=== PATIENT | female | born 2000 | race Caucasian/White ===

== ENCOUNTER 2021-09-15 18:39 | Emergency (ER) | payer SELFPAY ==
[~2021-09-15] VITALS: Ht 165.1 cm; Wt 90.4 kg
[2021-09-15 18:40] VITALS: BP 149/100
--- NOTE | 2021-09-15 19:30 | PHYS DOC ---
Past Medical History Past Surgical History: No Surgical History General Adult EDM: Chief Complaint: UPPER EXTREMITY PAIN HPI: HPI: Patient is a 21 year old female presents to the emergency department complaining of right wrist and forearm pain that started this past Thursday while at work. Patient states she moves heavy boxes repetitively, explained to her boxes that she was hurting, states that her bosses told her that she needed to work anyways. Patient states she took a tablet of 200 mg Motrin Thursday after work without relief of pain, states she put icy hot on her forearm without relief of pain, states Thursday she did not try any [id number] medications or nonpharmacological pain relief methods for her discomfort. Patient states she is due to the go back to work on Thursday, is still continuing to have pain and discomfort of her right forearm and wrist. Patient reports her last menstrual cycle was 5 weeks ago with normal duration of flow. Reports a 6-7 out of 10 pain. Increased pain with movement of the wrist. States nothing seems to make her pain go away. Patient denies other physical complaints or physical concerns. Review of Systems: Review of Systems: 14 body systems of review of systems have been reviewed. See HPI for pertinent positives and negative responses, otherwise all other systems are negative, nonpertinent or noncontributory. Constitutional: Negative except as outlined in HPI above. Skin: Negative except as outlined in HPI above. Eyes: Negative except as outlined in HPI above. HENT: Negative except as outlined in HPI above. Respiratory: Negative except as outlined in HPI above. Cardiovascular: Negative except as outlined in HPI above. GI: Negative except as outlined in HPI above. : Negative except as outlined in HPI above. Musculoskeletal: Negative except as outlined in HPI above. Integument: Negative except as outlined in HPI above. Neurologic: Negative except as outlined in HPI above. Endocrine: Negative except as outlined in HPI above. Lymphatic: Negative except as outlined in HPI above. Psychiatric: Negative except as outlined in HPI above. Heart Score: C/O Chest Pain: No Risk Factors: Risk Factors: DM, Current or recent (<one month) smoker, HTN, HLP, family history of CAD, obesity. Risk Scores: Score 0 - 3: 2.5% MACE over next 6 weeks - Discharge Home Score 4 - 6: 20.3% MACE over next 6 weeks - Admit for Clinical Observation Score 7 - 10: 72.7% MACE over next 6 weeks - Early Invasive Strategies Allergies: Allergies: Allergies Coded Allergies Type Severity Reaction Last Updated Verified No Known Drug Allergies 09/15/21 No Physical Exam: PE: Constitutional: Well developed, well nourished, no acute distress, non-toxic appearance. 21-year-old female in no apparent distress. HENT: Normocephalic, atraumatic. Eyes: Conjunctiva normal, no discharge. Neck: Normal range of motion, no stridor. Cardiovascular: No cyanosis appreciated, distal cap refill less than 2 seconds. Lungs & Thorax: Patient is in no respiratory distress, no audible adventitious lung sounds appreciated. Abdomen: Nontender, no abnormalities noted. Skin: Warm, dry, no erythema, no rash. Back: No tenderness, no deformities. Extremities: No tenderness, no cyanosis, no clubbing, ROM intact, no edema. Except for right upper extremity, positive Phalen's and Tinel's test. Distal cap refill less than 2 seconds equal bilateral upper extremities, 2+ radial pulses equal bilateral upper extremities. There is no deformities, no skin discoloration, no swelling appreciated. No lymphangitis appreciated. Skin is intact. Neurologic: Alert and oriented X 3, normal motor function, normal sensory function, no focal deficits noted. Psychologic: Affect normal, judgement normal, mood normal. Current Patient Data: Labs: Laboratory Tests Test 09/15/21 19:03 POC Urine HCG, Qualitative Hcg negative (Negative) Vital Signs: Vital Signs Date Time Temp Pulse Resp B/P (MAP) Pulse Ox O2 Delivery O2 Flow Rate FiO2 09/15/21 18:40 98.5 87 18 149/100 (116) 98 Room Air 98.5 EKG: EKG: [] Radiology/Procedures: Radiology/Procedures: [] Course & Med Decision Making: Course & Med Decision Making Pertinent Labs and Imaging studies reviewed. (See chart for details) 21-year-old female, vital signs reviewed, presents emergency department concerning right wrist pain after lifting heavy boxes at work all day. Physical examination concerning for carpal tunnel of the right wrist. Discussed with patient concerns of carpal tunnel, discussed with patient wearing splint, follow-up with primary care for reevaluation soon, NSAID therapy, will prescribe Motrin for pain or discomfort, will give Decadron injection in ED prior to discharge. Discussed return to ER precautions and concerns, patient gave verbal understanding of and is amenable to ED discharge planning. Discussed with the patient all findings and diagnostic testing as well as the need to follow-up with their primary care provider for further evaluation and treatment or return to the ED if any new or worsening symptoms. Strict return precautions were also discussed at length, the patient voiced understanding and agreement with the discharge planning. The patient was nontoxic in appearance, in no apparent distress, and hemodynamically stable at the time of disposition. Dragon Disclaimer: Dragon Disclaimer: This electronic medical record was generated, in whole or in part, using a voice recognition dictation system. Departure Departure Impression: Primary Impression: Carpal tunnel syndrome of right wrist Disposition: HOME / SELF CARE / HOMELESS Condition: GOOD Patient Instructions: Carpal Tunnel Syndrome Additional Instructions: You were seen today in the emergency department for right wrist pain. Your physical examination is concerning for carpal tunnel syndrome. You were given a steroid injection in the ED today prior to discharge. You are also given a intramuscular injection of Toradol. As we discussed I am starting you on ibuprofen for pain and discomfort. Please wear the splint at work, wear splint at night for the next several days, follow-up with your primary care physician soon for reevaluation. If you do not have a primary care physician I will provide a list of area healthcare providers and clinics for you to establish primary health care with. Thank you for visiting our Emergency Department. It was a pleasure taking care of you today in the emergency department and we appreciate you trusting us with your care. If any additional problems come up don't hesitate to return to visit us. Please follow up with your primary care provider so they can plan additional care if needed and know about the problem that you had. If symptoms worsen come back to the Emergency Department. Any concerning symptoms that start such as chest pain, shortness of air, weakness or numbness on one side of the body, running high fevers or any other concerning symptoms return to the ER. Tin [facility] [address] [place] [address] [facility] [address] [place] [address], [place] [id number] [address] [place] [id number] [phone] [facility] [address] [place] [address] [facility] [place] [address] [facility] [address] [place] [address] [facility] [address] [place] [address] [facility] [employer] [address] [place] [address] [facility] [address] [place] [address] [facility] [address] [place] [address] Scripts Ibuprofen (IBUPROFEN) 600 Mg Tablet 600 MG PO PRN Q6HRS PRN for INFLAMMATION, #30 TAB 0 Refills Prov: ADOLFO ORELLANA APRN 09/15/21 ADOLFO ORELLANA APRN Sep 15, 2021 19:30
[2021-09-15] MEDS ORDERED: IBUP-1007 PO (19:37)
[2021-09-15] MEDS ORDERED: DEXAMETHASONE SOD PHOS 20 MG/5 ML VIAL. IM ONE (19:45)
[2021-09-15] MEDS ORDERED: KETOROLAC 60 MG/2 ML VIAL. IM ONE (19:45)
== END 2021-09-15 19:55 | disposition home or self-care (01) ==
LOC: ER 18:39
DX: G56.01 Carpal tunnel syndrome, right upper limb (principal)
CPT/HCPCS: 81025; 96372; 99284; J1100; J1885